=== PATIENT | female | born 1960 | race Caucasian/White ===

== ENCOUNTER 2018-01-02 09:11 | Emergency (ER) | payer OTHER ==
[~2018-01-02] VITALS: Ht 170.2 cm; Wt 65.8 kg
[~2018-01-02 09:11] MED LIST: "\\\"BLOOD PRESSURE MED\\\""; ACYC400 PO; ALBU90OI61 INH; AMIT10 PO; AMIT25 PO; AMLO5 PO; Allergy Relief10 M1 PO; Aspirin EC81 MG PO; BENZ100A PO; CARB100CH PO; CEPH500 PO; CITA20 PO; CLON.5 PO; CODACE30 PO; CYCL10 PO; Cyclobenzaprine5 MG PO; DIVA500EC PO; DIVA500ER PO; DOCU100 PO; FLUT.05NI; Golytely Packe1 EACH PO; HYDACE5 PO; HYDCHL25 PO; IBUP600; IBUP600 PO; LAMO100 PO; LAMO25 PO; LEVA.63IS IH; LEVE500 PO; LEVSOD50 PO; LISI20 PO; LORA10 PO; LOVA20 PO; MELO7.5 PO; METO25 PO; METO25ER PO; MONT10T PO; NAPR500 PO; Norco 5-325 Ta1 EACH PO; OLAN10 PO; OLAN5 PO; OXYC5; PHENY100ER PO; PROP10 PO; Percocet 5-3251 EACH PO; RANI150 PO; TRAM50; TRAZ50 PO; Valium5 MG PO; Vibramycin100 MG PO; Zyprexa10 MG PO
[2018-01-02] MEDS ORDERED: Tylenol325 MG PO (11:56)
== END 2018-01-02 12:10 | disposition home or self-care (01) ==
LOC: ER 09:11
DX: R51 Headache (principal); I10 Essential (primary) hypertension; F31.9 Bipolar disorder, unspecified; R56.9 Unspecified convulsions; Z88.5 Allergy status to narcotic agent; Z88.8 Allergy status to other drugs, medicaments and biological substances; Z79.82 Long term (current) use of aspirin; Z79.899 Other long term (current) drug therapy; Z87.891 Personal history of nicotine dependence; Z98.890 Other specified postprocedural states
CPT/HCPCS: 70450; 99284

== ENCOUNTER 2018-02-03 14:03 | Emergency (ER) | payer OTHER ==
[~2018-02-03] VITALS: Ht 170.2 cm; Wt 68.0 kg
[~2018-02-03 14:03] MED LIST changes: +Tylenol325 MG PO
[2018-02-03] MEDS ORDERED: Kristalose20 GM PO (17:40)
== END 2018-02-03 17:54 | disposition home or self-care (01) ==
LOC: ER 14:03
DX: K62.89 Other specified diseases of anus and rectum (principal); G89.29 Other chronic pain; I10 Essential (primary) hypertension; G40.909 Epilepsy, unspecified, not intractable, without status epilepticus; F31.9 Bipolar disorder, unspecified; Z88.5 Allergy status to narcotic agent; Z88.8 Allergy status to other drugs, medicaments and biological substances; Z79.899 Other long term (current) drug therapy; Z79.82 Long term (current) use of aspirin; Z87.891 Personal history of nicotine dependence
CPT/HCPCS: 99283

== ENCOUNTER 2018-03-16 17:05 | Emergency (ER) | payer OTHER ==
[~2018-03-16] VITALS: Ht 170.2 cm; Wt 68.0 kg
[~2018-03-16 17:05] MED LIST changes: +Aspirin EC81 MG; -Aspirin EC81 MG PO; +Kristalose20 GM PO
== END 2018-03-16 19:48 | disposition home or self-care (01) ==
LOC: ER 17:05
DX: M25.572 Pain in left ankle and joints of left foot (principal); G89.29 Other chronic pain; I10 Essential (primary) hypertension; F31.9 Bipolar disorder, unspecified; G40.909 Epilepsy, unspecified, not intractable, without status epilepticus; Z88.5 Allergy status to narcotic agent; Z88.8 Allergy status to other drugs, medicaments and biological substances; Z79.899 Other long term (current) drug therapy; Z79.82 Long term (current) use of aspirin; W01.0XXA Fall on same level from slipping, tripping and stumbling without subsequent striking against object, initial encounter
CPT/HCPCS: 73610; 73630; 99283

== ENCOUNTER 2018-03-25 17:12 | Emergency (ER) | payer OTHER ==
[~2018-03-25] VITALS: Ht 170.2 cm; Wt 68.0 kg
[2018-03-25] MEDS ORDERED: Roxicodone5 MG PO (19:01)
[2018-03-25] MEDS ORDERED: Cyclobenzaprine5 MG PO (19:01)
== END 2018-03-25 19:06 | disposition home or self-care (01) ==
LOC: ER 17:12
DX: M79.605 Pain in left leg (principal); G89.29 Other chronic pain; Z76.0 Encounter for issue of repeat prescription; Z88.5 Allergy status to narcotic agent; Z88.8 Allergy status to other drugs, medicaments and biological substances; Z79.899 Other long term (current) drug therapy; Z79.891 Long term (current) use of opiate analgesic; Z79.82 Long term (current) use of aspirin; I10 Essential (primary) hypertension; F31.9 Bipolar disorder, unspecified
CPT/HCPCS: 99283

== ENCOUNTER 2018-04-28 21:22 | Observation (INO) | payer OTHER ==
[~2018-04-28] VITALS: Ht 172.7 cm; Wt 81.7 kg
[~2018-04-28 21:22] MED LIST changes: +Roxicodone5 MG PO
[2018-04-28] MEDS ORDERED: IBUP800 PO (22:08)
[2018-04-28] MEDS ORDERED: ESCI20 PO (22:09)
[2018-04-28] MEDS ORDERED: AMIT25 PO (22:10)
[2018-04-28 22:14] LABS: BASOPHILS ABSOLUTE AUTO 0.04 K/mm3 (0.00-0.23); BASOPHILS PERCENT AUTO 1 % (0-2); EOSINOPHILS ABSOLUTE AUTO 0.37 K/mm3 (0.00-0.68); EOSINOPHILS PERCENT AUTO 5 % (0-6); Hematocrit 33.9 % (33.0-51.0); Hemoglobin 11.5 g/dL (11.5-16.0); IMMATURE GRAN ABSOLUTE AUTO 0.03 K/mm3 (0.00-0.10); IMMATURE GRAN PERCENT AUTO 0 % (0-1); LYMPHOCYTES ABSOLUTE AUTO 1.26 K/mm3 (0.84-5.20); LYMPHOCYTES PERCENT AUTO 16 % (21-46); MONOCYTES ABSOLUTE AUTO 0.65 K/mm3 (0.16-1.47); MONOCYTES PERCENT AUTO 8 % (4-13); Mean Corpuscular HGB 28.3 pg (26.0-34.0); Mean Corpuscular HGB Conc 33.9 g/dL (31.5-36.5); Mean Corpuscular Volume 84 fL (80-100); Mean Platelet Volume 8.8 fL (9.1-12.4); NEUTROPHILS ABSOLUTE AUTO 5.55 K/mm3 (1.96-9.15); NEUTROPHILS PERCENT AUTO 70 % (41-73); Platelet Count 311 K/mm3 (150-400); RDW Coefficient Variation 12.2 % (11.7-14.2); Red Blood Cell Count 4.06 M/mm3 (3.80-5.20)
[2018-04-28 22:38] LABS: Alanine Aminotransfer (ALT/SGP 25 U/L (12-78); Albumin, Blood 4.1 g/dL (3.4-5.0); Albumin/Globulin Ratio 1.1 (0.8-1.8); Alk Phos 106 U/L (50-136); Anion Gap 9 mmol/L (6-16); Aspartate Aminotrans (AST/SGOT 18 U/L (12-37); Bilirubin, Total 0.4 mg/dL (0.1-1.0); Blood Urea Nitrogen 11 mg/dL (8-24); Bun/Creatinine Ratio 16.6 (12.0-20.0); CO2, Blood 25 mmol/L (21-32); Calcium, Blood 8.9 mg/dL (8.5-10.1); Chloride, Blood 96 mmol/L (98-108); Creatinine, Blood 0.66 mg/dL (0.40-1.00); Ethanol (Alcohol), Blood, Med <3 mg/dL; Globulin, Blood 3.8 g/dL (2.2-4.0); Glomerular Filtration Rate >60 (60-); Glucose, Blood 100 mg/dL (70-99); Potassium, Blood 3.9 mmol/L (3.5-5.5); Salicylate <1.7 mg/dL (2.8-20.0); Sodium, Blood 130 mmol/L (136-145); Total Protein, Blood 7.9 g/dL (6.4-8.2)
[2018-04-28 22:46] LABS: Acetaminophen, Random <2.0 ug/mL (10.0-30.0)
[2018-04-28 23:37] LABS: Source, Urine Voided
[2018-04-28 23:45] LABS: Bilirubin, Urine Neg (Neg); Blood, Urine Neg (Neg); Glucose Qualitative, Urine Neg (Neg); Ketones, Urine Neg (Neg); Leukocyte Esterase, Urine Neg (Neg); Nitrite, Urine Neg (Neg); Protein, Urine Neg (Neg); Urobilinogen, Urine NORM (Normal)
[2018-04-28 23:51] LABS: Appearance, Urine Clear (Clear); Color, Urine Yellow (P-Yellow)
[2018-04-28 23:57] LABS: U Amphetamine Screen Not Detected; U Barbituate Screen Not Detected; U Benzodiazapine Screen Not Detected; U Buprenorphine Screen Not Detected; U Cannabinoids Screen Not Detected; U Cocaine Screen Not Detected; U Methadone Screen Not Detected; U Methamphetamine Screen Not Detected; U Opiates Screen Not Detected; U Oxycodone Screen Not Detected; U Phencyclidine Screen Not Detected; U Propoxyphene Screen Not Detected
== END 2018-04-29 17:54 | disposition home or self-care (01) ==
LOC: ER 21:22 → EOR 21:23
PROVIDERS: Emergency Medicine
DX: R45.851 Suicidal ideations (principal); F31.9 Bipolar disorder, unspecified; I10 Essential (primary) hypertension; Z88.5 Allergy status to narcotic agent; Z88.8 Allergy status to other drugs, medicaments and biological substances; Z79.899 Other long term (current) drug therapy; Z87.891 Personal history of nicotine dependence
CPT/HCPCS: 36415; 80053; 81003; 81025; 84443; 85025; 99285; G0378; G0480; Q3014

== ENCOUNTER 2018-05-04 21:31 | Observation (INO) | payer OTHER ==
[~2018-05-04] VITALS: Ht 172.7 cm; Wt 76.7 kg
[~2018-05-04 21:31] MED LIST changes: -Aspirin EC81 MG; +Aspirin EC81 MG PO; +ESCI20 PO; +IBUP800 PO
[2018-05-04 23:12] LABS: BASOPHILS ABSOLUTE AUTO 0.05 K/mm3 (0.00-0.23); BASOPHILS PERCENT AUTO 1 % (0-2); EOSINOPHILS ABSOLUTE AUTO 0.42 K/mm3 (0.00-0.68); EOSINOPHILS PERCENT AUTO 7 % (0-6); Hematocrit 31.9 % (33.0-51.0); Hemoglobin 10.9 g/dL (11.5-16.0); IMMATURE GRAN ABSOLUTE AUTO 0.01 K/mm3 (0.00-0.10); IMMATURE GRAN PERCENT AUTO 0 % (0-1); LYMPHOCYTES ABSOLUTE AUTO 1.24 K/mm3 (0.84-5.20); LYMPHOCYTES PERCENT AUTO 21 % (21-46); MONOCYTES PERCENT AUTO 10 % (4-13); Mean Corpuscular HGB 28.5 pg (26.0-34.0); Mean Corpuscular HGB Conc 34.2 g/dL (31.5-36.5); Mean Corpuscular Volume 84 fL (80-100); Mean Platelet Volume 8.7 fL (9.1-12.4); NEUTROPHILS ABSOLUTE AUTO 3.57 K/mm3 (1.96-9.15); NEUTROPHILS PERCENT AUTO 61 % (41-73); Platelet Count 309 K/mm3 (150-400); RDW Coefficient Variation 11.9 % (11.7-14.2); RDW Standard Deviation 35.8 fL (35.1-46.3); Red Blood Cell Count 3.82 M/mm3 (3.80-5.20); White Blood Cell Count 5.89 K/mm3 (4.00-11.30)
[2018-05-04 23:35] LABS: Alanine Aminotransfer (ALT/SGP 24 U/L (12-78); Albumin, Blood 3.8 g/dL (3.4-5.0); Alk Phos 100 U/L (50-136); Anion Gap 8 mmol/L (6-16); Aspartate Aminotrans (AST/SGOT 19 U/L (12-37); Bilirubin, Total 0.2 mg/dL (0.1-1.0); Blood Urea Nitrogen 6 mg/dL (8-24); Bun/Creatinine Ratio 9.3 (12.0-20.0); CO2, Blood 24 mmol/L (21-32); Calcium, Blood 8.4 mg/dL (8.5-10.1); Chloride, Blood 95 mmol/L (98-108); Creatinine, Blood 0.64 mg/dL (0.40-1.00); Ethanol (Alcohol), Blood, Med <3 mg/dL; Globulin, Blood 3.7 g/dL (2.2-4.0); Glomerular Filtration Rate >60 (60-); Glucose, Blood 80 mg/dL (70-99); Potassium, Blood 4.3 mmol/L (3.5-5.5); Salicylate <1.7 mg/dL (2.8-20.0); Sodium, Blood 127 mmol/L (136-145); Total Protein, Blood 7.5 g/dL (6.4-8.2)
[2018-05-04 23:41] LABS: Acetaminophen, Random <2.0 ug/mL (10.0-30.0)
[2018-05-05 00:51] LABS: Source, Urine Clean Catch
[2018-05-05 00:57] LABS: Bilirubin, Urine Neg (Neg); Blood, Urine Neg (Neg); Glucose Qualitative, Urine Neg (Neg); Ketones, Urine Neg (Neg); Leukocyte Esterase, Urine Neg (Neg); Nitrite, Urine Neg (Neg); Protein, Urine Neg (Neg); Urobilinogen, Urine NORM (Normal)
[2018-05-05 01:03] LABS: Appearance, Urine Clear (Clear); Color, Urine Yellow (P-Yellow)
[2018-05-05 01:08] LABS: U Amphetamine Screen Not Detected; U Barbituate Screen Not Detected; U Benzodiazapine Screen Not Detected; U Buprenorphine Screen Not Detected; U Cannabinoids Screen Not Detected; U Cocaine Screen Not Detected; U Methadone Screen Not Detected; U Methamphetamine Screen Not Detected; U Opiates Screen Not Detected; U Oxycodone Screen Not Detected; U Phencyclidine Screen Not Detected; U Propoxyphene Screen Not Detected
[2018-05-09] MEDS ORDERED: LEVSOD75 PO (13:48)
[2018-05-09] MEDS ORDERED: ALBU90OI INH (13:52)
[2018-05-11] MEDS ORDERED: QUET300 PO (12:38)
== END 2018-05-12 12:42 | disposition home or self-care (01) ==
LOC: ER 21:31 → EOR 21:32
PROVIDERS: Emergency Medicine
DX: R45.851 Suicidal ideations (principal); F23 Brief psychotic disorder; F31.9 Bipolar disorder, unspecified; I10 Essential (primary) hypertension; G40.909 Epilepsy, unspecified, not intractable, without status epilepticus; Z79.899 Other long term (current) drug therapy; Z88.5 Allergy status to narcotic agent; Z88.8 Allergy status to other drugs, medicaments and biological substances; Z87.891 Personal history of nicotine dependence
CPT/HCPCS: 80053; 80177; 81003; 81025; 84443; 85025; 93005; 93010; 99285; G0378; G0480; Q0163; Q0177

== ENCOUNTER 2019-01-29 20:10 | Emergency (ER) | payer OTHER ==
[~2019-01-29] VITALS: Ht 170.2 cm; Wt 71.2 kg
[~2019-01-29 20:10] MED LIST changes: +ALBU90OI INH; +LEVSOD75 PO; +QUET300 PO
[2019-01-29] MEDS ORDERED: Voltaren100 GM TOP (22:00)
== END 2019-01-29 22:06 | disposition home or self-care (01) ==
LOC: ER 20:10
DX: M25.562 Pain in left knee (principal); G89.29 Other chronic pain; Z88.5 Allergy status to narcotic agent; Z88.8 Allergy status to other drugs, medicaments and biological substances; Z79.899 Other long term (current) drug therapy; Z79.82 Long term (current) use of aspirin; I10 Essential (primary) hypertension; F31.9 Bipolar disorder, unspecified; Z87.891 Personal history of nicotine dependence
CPT/HCPCS: 73562-LT; 99283-25

== ENCOUNTER 2019-03-31 02:52 | Emergency (ER) | payer OTHER ==
[~2019-03-31] VITALS: Ht 170.2 cm; Wt 70.8 kg
[~2019-03-31 02:52] MED LIST changes: +Voltaren100 GM TOP
[2019-03-31] MEDS ORDERED: CITA20 PO (05:00)
[2019-03-31] MEDS ORDERED: TRAM50 PO (05:02)
== END 2019-03-31 05:03 | disposition home or self-care (01) ==
LOC: ER 02:52
DX: M19.072 Primary osteoarthritis, left ankle and foot (principal); Z88.5 Allergy status to narcotic agent; Z88.8 Allergy status to other drugs, medicaments and biological substances; Z79.899 Other long term (current) drug therapy; Z79.82 Long term (current) use of aspirin; F31.9 Bipolar disorder, unspecified; Z87.891 Personal history of nicotine dependence; I10 Essential (primary) hypertension; R53.1 Weakness
CPT/HCPCS: 99283

== ENCOUNTER 2019-04-04 10:44 | Emergency (ER) | payer OTHER ==
[~2019-04-04] VITALS: Ht 170.2 cm; Wt 69.8 kg
[~2019-04-04 10:44] MED LIST changes: +TRAM50 PO
== END 2019-04-04 13:29 | disposition home or self-care (01) ==
LOC: ER 10:44
DX: S90.32XA Contusion of left foot, initial encounter (principal); W22.8XXA Striking against or struck by other objects, initial encounter; Z88.5 Allergy status to narcotic agent; Z88.8 Allergy status to other drugs, medicaments and biological substances; Z79.899 Other long term (current) drug therapy; Z79.82 Long term (current) use of aspirin; F31.9 Bipolar disorder, unspecified; I10 Essential (primary) hypertension; Z87.891 Personal history of nicotine dependence
CPT/HCPCS: 73630; 99283-25

== ENCOUNTER 2019-05-27 22:37 | Emergency (ER) | payer OTHER ==
[~2019-05-27] VITALS: Ht 170.2 cm; Wt 70.3 kg
[2019-05-27 23:28] LABS: BASOPHILS ABSOLUTE AUTO 0.03 K/mm3 (0.00-0.23); BASOPHILS PERCENT AUTO 0 % (0-2); EOSINOPHILS ABSOLUTE AUTO 0.24 K/mm3 (0.00-0.68); EOSINOPHILS PERCENT AUTO 3 % (0-6); Hematocrit 32.7 % (33.0-51.0); Hemoglobin 10.4 g/dL (11.5-16.0); IMMATURE GRAN ABSOLUTE AUTO 0.03 K/mm3 (0.00-0.10); IMMATURE GRAN PERCENT AUTO 0 % (0-1); LYMPHOCYTES ABSOLUTE AUTO 1.89 K/mm3 (0.84-5.20); LYMPHOCYTES PERCENT AUTO 26 % (21-46); MONOCYTES ABSOLUTE AUTO 0.85 K/mm3 (0.16-1.47); MONOCYTES PERCENT AUTO 12 % (4-13); Mean Corpuscular HGB 25.9 pg (26.0-34.0); Mean Corpuscular HGB Conc 31.8 g/dL (31.5-36.5); Mean Corpuscular Volume 82 fL (80-100); NEUTROPHILS ABSOLUTE AUTO 4.14 K/mm3 (1.96-9.15); NEUTROPHILS PERCENT AUTO 58 % (41-73); Platelet Count 292 K/mm3 (150-400); RDW Coefficient Variation 13.1 % (11.7-14.2); RDW Standard Deviation 38.7 fL (35.1-46.3); Red Blood Cell Count 4.01 M/mm3 (3.80-5.20); White Blood Cell Count 7.18 K/mm3 (4.00-11.30)
[2019-05-27 23:47] LABS: Alanine Aminotransfer (ALT/SGP 27 U/L (12-78); Albumin, Blood 3.9 g/dL (3.4-5.0); Albumin/Globulin Ratio 1.1 (0.8-1.8); Alk Phos 90 U/L (50-136); Anion Gap 6 mmol/L (6-16); Aspartate Aminotrans (AST/SGOT 25 U/L (12-37); Bilirubin, Total 0.2 mg/dL (0.1-1.0); Blood Urea Nitrogen 18 mg/dL (8-24); Bun/Creatinine Ratio 32.4 (12.0-20.0); CO2, Blood 26 mmol/L (21-32); Calcium, Blood 8.4 mg/dL (8.5-10.1); Chloride, Blood 104 mmol/L (98-108); Creatinine, Blood 0.56 mg/dL (0.40-1.00); Globulin, Blood 3.5 g/dL (2.2-4.0); Glomerular Filtration Rate >60 (60-); Glucose, Blood 99 mg/dL (70-99); Potassium, Blood 4.3 mmol/L (3.5-5.5); Sodium, Blood 136 mmol/L (136-145); Total Protein, Blood 7.4 g/dL (6.4-8.2)
[2019-09-06] MEDS ORDERED: CYAN500 PO (08:42)
[2019-09-06] MEDS ORDERED: DOCU100 PO (08:43)
[2019-09-06] MEDS ORDERED: MELATONIN5 M1 PO (08:50)
[2019-09-06] MEDS ORDERED: MIRALAX17 GM PO (08:50)
== END 2019-05-28 01:10 | disposition home or self-care (01) ==
LOC: ER 22:37
PROVIDERS: Emergency Medicine
DX: K29.70 Gastritis, unspecified, without bleeding (principal); I10 Essential (primary) hypertension; F31.9 Bipolar disorder, unspecified; Z88.5 Allergy status to narcotic agent; Z88.8 Allergy status to other drugs, medicaments and biological substances; Z79.82 Long term (current) use of aspirin; Z79.899 Other long term (current) drug therapy; Z87.891 Personal history of nicotine dependence
CPT/HCPCS: 36415; 80053; 83690; 83735; 85025; 93005; 93010; 99284-25

== ENCOUNTER 2019-07-10 13:05 | Emergency (ER) | payer OTHER ==
[~2019-07-10] VITALS: Ht 170.2 cm; Wt 70.3 kg
[2019-07-10 14:16] LABS: BASOPHILS ABSOLUTE AUTO 0.05 K/mm3 (0.00-0.23); BASOPHILS PERCENT AUTO 1 % (0-2); EOSINOPHILS PERCENT AUTO 4 % (0-6); Hematocrit 34.4 % (33.0-51.0); Hemoglobin 10.9 g/dL (11.5-16.0); IMMATURE GRAN ABSOLUTE AUTO 0.01 K/mm3 (0.00-0.10); IMMATURE GRAN PERCENT AUTO 0 % (0-1); LYMPHOCYTES ABSOLUTE AUTO 1.54 K/mm3 (0.84-5.20); LYMPHOCYTES PERCENT AUTO 31 % (21-46); MONOCYTES ABSOLUTE AUTO 0.56 K/mm3 (0.16-1.47); MONOCYTES PERCENT AUTO 11 % (4-13); Mean Corpuscular HGB 24.7 pg (26.0-34.0); Mean Corpuscular HGB Conc 31.7 g/dL (31.5-36.5); Mean Corpuscular Volume 78 fL (80-100); Mean Platelet Volume 9.9 fL (9.1-12.4); NEUTROPHILS ABSOLUTE AUTO 2.62 K/mm3 (1.96-9.15); NEUTROPHILS PERCENT AUTO 53 % (41-73); Platelet Count 254 K/mm3 (150-400); RDW Coefficient Variation 14.8 % (11.7-14.2); RDW Standard Deviation 41.6 fL (35.1-46.3); Red Blood Cell Count 4.41 M/mm3 (3.80-5.20); White Blood Cell Count 4.98 K/mm3 (4.00-11.30)
[2019-07-10 14:37] LABS: Alanine Aminotransfer (ALT/SGP 19 U/L (12-78); Albumin, Blood 3.5 g/dL (3.4-5.0); Albumin/Globulin Ratio 0.8 (0.8-1.8); Alk Phos 86 U/L (50-136); Anion Gap 4 mmol/L (6-16); Aspartate Aminotrans (AST/SGOT 14 U/L (12-37); Bilirubin, Total 0.2 mg/dL (0.1-1.0); Blood Urea Nitrogen 17 mg/dL (8-24); Bun/Creatinine Ratio 27.3 (12.0-20.0); CO2, Blood 30 mmol/L (21-32); Calcium, Blood 9.7 mg/dL (8.5-10.1); Chloride, Blood 102 mmol/L (98-108); Creatinine, Blood 0.62 mg/dL (0.40-1.00); Globulin, Blood 4.2 g/dL (2.2-4.0); Glomerular Filtration Rate >60 (60-); Glucose, Blood 76 mg/dL (70-99); Potassium, Blood 3.8 mmol/L (3.5-5.5); Sodium, Blood 136 mmol/L (136-145); Total Protein, Blood 7.7 g/dL (6.4-8.2)
[2019-07-10] MEDS ORDERED: Pepcid40 MG PO (15:24)
[2019-09-06] MEDS ORDERED: CYAN500 PO (08:42)
[2019-09-06] MEDS ORDERED: DOCU100 PO (08:43)
[2019-09-06] MEDS ORDERED: MIRALAX17 GM PO (08:50)
[2019-09-06] MEDS ORDERED: MELATONIN5 M1 PO (08:50)
== END 2019-07-10 15:52 | disposition home or self-care (01) ==
LOC: ER 13:05
PROVIDERS: Emergency Medicine
DX: K27.9 Peptic ulcer, site unspecified, unspecified as acute or chronic, without hemorrhage or perforation (principal); M25.562 Pain in left knee; G89.29 Other chronic pain; I10 Essential (primary) hypertension; F31.9 Bipolar disorder, unspecified; Z86.73 Personal history of transient ischemic attack (TIA), and cerebral infarction without residual deficits; Z87.891 Personal history of nicotine dependence; Z88.5 Allergy status to narcotic agent; Z88.8 Allergy status to other drugs, medicaments and biological substances; Z79.899 Other long term (current) drug therapy; Z79.82 Long term (current) use of aspirin
CPT/HCPCS: 36415; 80053; 83690; 85025; 99284; J2405; J3010

== ENCOUNTER 2019-07-24 14:27 | Emergency (ER) | payer OTHER ==
[~2019-07-24] VITALS: Ht 170.2 cm; Wt 56.7 kg
[~2019-07-24 14:27] MED LIST changes: +Pepcid40 MG PO
[2019-09-06] MEDS ORDERED: CYAN500 PO (08:42)
[2019-09-06] MEDS ORDERED: DOCU100 PO (08:43)
[2019-09-06] MEDS ORDERED: MIRALAX17 GM PO (08:50)
[2019-09-06] MEDS ORDERED: MELATONIN5 M1 PO (08:50)
== END 2019-07-24 16:10 | disposition home or self-care (01) ==
LOC: ER 14:27
DX: M25.562 Pain in left knee (principal); I10 Essential (primary) hypertension; F31.9 Bipolar disorder, unspecified; Z88.5 Allergy status to narcotic agent; Z88.8 Allergy status to other drugs, medicaments and biological substances; Z79.82 Long term (current) use of aspirin; Z79.899 Other long term (current) drug therapy; E03.9 Hypothyroidism, unspecified; Z87.891 Personal history of nicotine dependence; Z96.652 Presence of left artificial knee joint
CPT/HCPCS: 73562-LT; 99283-25

== ENCOUNTER 2019-08-27 14:25 | Emergency (ER) | payer OTHER ==
[~2019-08-27] VITALS: Ht 170.2 cm; Wt 70.3 kg
[2019-08-27 15:27] LABS: BASOPHILS ABSOLUTE AUTO 0.03 K/mm3 (0.00-0.23); BASOPHILS PERCENT AUTO 1 % (0-2); EOSINOPHILS ABSOLUTE AUTO 0.22 K/mm3 (0.00-0.68); EOSINOPHILS PERCENT AUTO 4 % (0-6); Hematocrit 35.6 % (33.0-51.0); Hemoglobin 11.4 g/dL (11.5-16.0); IMMATURE GRAN ABSOLUTE AUTO 0.01 K/mm3 (0.00-0.10); IMMATURE GRAN PERCENT AUTO 0 % (0-1); LYMPHOCYTES ABSOLUTE AUTO 1.53 K/mm3 (0.84-5.20); LYMPHOCYTES PERCENT AUTO 27 % (21-46); MONOCYTES ABSOLUTE AUTO 0.61 K/mm3 (0.16-1.47); MONOCYTES PERCENT AUTO 11 % (4-13); Mean Corpuscular HGB 26.6 pg (26.0-34.0); Mean Corpuscular Volume 83 fL (80-100); Mean Platelet Volume 9.7 fL (9.1-12.4); NEUTROPHILS ABSOLUTE AUTO 3.29 K/mm3 (1.96-9.15); NEUTROPHILS PERCENT AUTO 58 % (41-73); Platelet Count 271 K/mm3 (150-400); RDW Coefficient Variation 15.3 % (11.7-14.2); RDW Standard Deviation 46.1 fL (35.1-46.3); Red Blood Cell Count 4.28 M/mm3 (3.80-5.20); White Blood Cell Count 5.69 K/mm3 (4.00-11.30)
[2019-08-27 15:40] LABS: International Normalized Ratio 0.92; Prothrombin Time Results 9.8 Sec (9.7-11.5)
[2019-08-27 15:46] LABS: Alanine Aminotransfer (ALT/SGP 24 U/L (12-78); Albumin, Blood 3.7 g/dL (3.4-5.0); Albumin/Globulin Ratio 0.8 (0.8-1.8); Alk Phos 78 U/L (50-136); Anion Gap 4 mmol/L (6-16); Aspartate Aminotrans (AST/SGOT 14 U/L (12-37); Bilirubin, Total 0.2 mg/dL (0.1-1.0); Blood Urea Nitrogen 24 mg/dL (8-24); Bun/Creatinine Ratio 37.9 (12.0-20.0); CO2, Blood 29 mmol/L (21-32); Calcium, Blood 9.9 mg/dL (8.5-10.1); Chloride, Blood 101 mmol/L (98-108); Creatinine, Blood 0.63 mg/dL (0.40-1.00); Globulin, Blood 4.4 g/dL (2.2-4.0); Glomerular Filtration Rate >60 (60-); Glucose, Blood 93 mg/dL (70-99); Sodium, Blood 134 mmol/L (136-145); Total Protein, Blood 8.1 g/dL (6.4-8.2)
[2019-09-06] MEDS ORDERED: CYAN500 PO (08:42)
[2019-09-06] MEDS ORDERED: DOCU100 PO (08:43)
[2019-09-06] MEDS ORDERED: MELATONIN5 M1 PO (08:50)
[2019-09-06] MEDS ORDERED: MIRALAX17 GM PO (08:50)
== END 2019-08-27 18:44 | disposition home or self-care (01) ==
LOC: ER 14:25
PROVIDERS: Physician Assistant
DX: R20.0 Anesthesia of skin (principal); G89.29 Other chronic pain; I10 Essential (primary) hypertension; F31.9 Bipolar disorder, unspecified; E03.9 Hypothyroidism, unspecified; Z88.5 Allergy status to narcotic agent; Z88.8 Allergy status to other drugs, medicaments and biological substances; Z79.899 Other long term (current) drug therapy; Z79.82 Long term (current) use of aspirin; Z87.891 Personal history of nicotine dependence
CPT/HCPCS: 36415; 70450; 80053; 85025; 85610; 93005; 93010; 99284-25

== ENCOUNTER 2019-09-07 07:24 | Day surgery (SDC) | payer OTHER ==
[~2019-09-07] VITALS: Ht 170.2 cm; Wt 75.9 kg
[~2019-09-07 07:24] MED LIST changes: +CYAN500 PO; +MELATONIN5 M1 PO; +MIRALAX17 GM PO
--- NOTE | 2019-09-07 08:10 | NUR ---
INTO SDS VIA WHEELCHAIR. HISTORY AND ALLERGIES REVIEWED. PT HAS HISTORY OF BRAIN ANEURYSM X 2-LEFT SIDED WEAKNESS. APPEARS A&OX3-DENIES PAIN AT THIS TIME.NPO STATUS CONFIRMED. PT TO TAKE TAXI HOME AFTER PROCEDURE.
--- NOTE | 2019-09-07 08:46 | NUR ---
09/07/19 0846 Jhoan Molina Bite Block PlacedPATIENT DETERMINED TO BE ASA APPROPRIATE FOR PROPOFOL SEDATION PRIOR TO START OF PROCEDURE BY .History, Chart, Medications and Allergies reviewed before start of procedure.MONITOR INTACT WITH CONTINUOUS PULSE OXIMETRY AND INTERMITTENT BP.O2 VIA N/C INTACT THROUGHOUT SEDATION/PROCEDURE.
--- NOTE | 2019-09-07 09:06 | NUR ---
PT AWAKE, CONVERSING WITH STAFF. NO C/O PAIN OR DISCOMFORT. MD TO BEDSIDE TO REVIEW FINDINGS OF CASE.
--- NOTE | 2019-09-07 09:12 | NUR ---
PT SIPPING ON PO FLUIDS AT THIS TIME.
--- NOTE | 2019-09-07 09:39 | NUR ---
PT HAD UNCOMPLICATED POST PROCEDURE COURSE. REVIEWED DISCHARGE INSTRUCTIONS WITH PATIENT WHO VERBALIZED UNDERSTANDING OF ALL. ASSISTED PATIENT IN DRESSING SELF. IV DC TIP INTACT. PT TRANSFERRED SELF TO OWN WHEELCHAIR WITH STAND PIVOT MANEUVER. PT DC HOME VIA MEDICAL TAXI PRE ARRANGED. AT HOME.
== END 2019-09-07 22:44 | disposition home or self-care (01) ==
LOC: ORSCMMR 07:24 → ORD 08:30 → ORSCMMR 22:44
PROVIDERS: Internal Medicine Gastroenterology
PROC: 0DB48ZX Excision of Esophagogastric Junction, Via Natural or Artificial Opening Endoscopic, Diagnostic (ICD-10-PCS; principal; 2019-09-07 08:30)
PROC: 0DB98ZX Excision of Duodenum, Via Natural or Artificial Opening Endoscopic, Diagnostic (ICD-10-PCS; principal; 2019-09-07 08:30)
PROC: 0DB68ZX Excision of Stomach, Via Natural or Artificial Opening Endoscopic, Diagnostic (ICD-10-PCS; principal; 2019-09-07 08:30)
DX: R10.13 Epigastric pain (principal); K44.9 Diaphragmatic hernia without obstruction or gangrene; D64.9 Anemia, unspecified; I10 Essential (primary) hypertension; F31.9 Bipolar disorder, unspecified; Z79.899 Other long term (current) drug therapy
CPT/HCPCS: 88305; 88342; J2704; J7120

== ENCOUNTER 2019-09-16 10:05 | Emergency (ER) | payer OTHER | END 2019-09-16 10:42 | disposition left against medical advice (07) | LOC: ER 10:05 | DX: Z53.21 Procedure and treatment not carried out due to patient leaving prior to being seen by health care provider (principal) ==

== ENCOUNTER 2019-10-21 10:05 | Day surgery (SDC) | payer OTHER ==
[~2019-10-21] VITALS: Wt 81.0 kg
[2019-10-21] MEDS ORDERED: FAMO20 PO (11:35)
[2019-10-21] MEDS ORDERED: OLAN5 PO (11:36)
[2019-10-21] MEDS ORDERED: LORA1 PO (11:36)
--- NOTE | 2019-10-21 12:01 | NUR ---
10/21/19 1201 NITIN ALLRED History, Chart, Medications and Allergies reviewed before start of procedure.3-LEAD EKG REVIEWED WITH PHYSICIAN PRIOR TO START OF PROCEDURE.O2 VIA N/C INTACT THROUGHOUT SEDATION/PROCEDURE. PATIENT DETERMINED TO BE ASA APPROPRIATE FOR PROPOFOL SEDATION PRIOR TO START OF PROCEDURE BY
--- NOTE | 2019-10-21 12:13 | NUR ---
PT INTO SDS VIA W/C. RANDOME SP[ORATICM SPEACH WITH INTERMITTENT ANXIETY AND TEARFUL.Patient confirms NPO status and agrees with scheduled surgery. Patient states colon prep results clear.
--- NOTE | 2019-10-21 13:41 | NUR ---
Discharge instructions reviewed with patient. Patient verbalizes understanding. Copy given to patient to take home. Discharged via wheelchair to private car for ride home.
--- NOTE | 2019-10-21 13:44 | NUR ---
PT DISCHARGED VIA TO WAIT FOR [facility] FOR RIDE HOME.
== END 2019-10-21 23:05 | disposition home or self-care (01) ==
LOC: ORSCMMR 10:05 → ORD 11:00 → ORSCMMR 11:00
PROVIDERS: Internal Medicine Gastroenterology
PROC: 0DBH8ZX Excision of Cecum, Via Natural or Artificial Opening Endoscopic, Diagnostic (ICD-10-PCS; principal; 2019-10-21 11:00)
DX: D50.0 Iron deficiency anemia secondary to blood loss (chronic) (principal); D12.0 Benign neoplasm of cecum; I10 Essential (primary) hypertension; M81.0 Age-related osteoporosis without current pathological fracture; F31.9 Bipolar disorder, unspecified; G40.909 Epilepsy, unspecified, not intractable, without status epilepticus; R10.13 Epigastric pain; Z79.899 Other long term (current) drug therapy
CPT/HCPCS: 88305; J2704; J7120

== ENCOUNTER 2019-11-27 06:30 | Emergency (ER) | payer OTHER ==
[~2019-11-27] VITALS: Ht 170.2 cm; Wt 81.2 kg
[~2019-11-27 06:30] MED LIST changes: +FAMO20 PO; +LORA1 PO
== END 2019-11-27 08:57 | disposition home or self-care (01) ==
LOC: ER 06:30
DX: M79.605 Pain in left leg (principal); G89.29 Other chronic pain; Z88.8 Allergy status to other drugs, medicaments and biological substances; Z88.5 Allergy status to narcotic agent; Z79.899 Other long term (current) drug therapy; F31.9 Bipolar disorder, unspecified; I10 Essential (primary) hypertension; E03.9 Hypothyroidism, unspecified
CPT/HCPCS: 73560-LT; 73590; 99283-25

== ENCOUNTER 2020-06-28 19:00 | Emergency (ER) | payer OTHER ==
[~2020-06-28] VITALS: Ht 170.2 cm; Wt 95.2 kg
[2020-06-28 19:36] LABS: BASOPHILS ABSOLUTE AUTO 0.04 K/mm3 (0.00-0.23); BASOPHILS PERCENT AUTO 1 % (0-2); EOSINOPHILS ABSOLUTE AUTO 0.28 K/mm3 (0.00-0.68); EOSINOPHILS PERCENT AUTO 4 % (0-6); Hematocrit 41.3 % (33.0-51.0); Hemoglobin 13.6 g/dL (11.5-16.0); IMMATURE GRAN ABSOLUTE AUTO 0.02 K/mm3 (0.00-0.10); IMMATURE GRAN PERCENT AUTO 0 % (0-1); LYMPHOCYTES ABSOLUTE AUTO 1.71 K/mm3 (0.84-5.20); LYMPHOCYTES PERCENT AUTO 24 % (21-46); MONOCYTES ABSOLUTE AUTO 0.73 K/mm3 (0.16-1.47); MONOCYTES PERCENT AUTO 10 % (4-13); Mean Corpuscular HGB 29.1 pg (26.0-34.0); Mean Corpuscular HGB Conc 32.9 g/dL (31.5-36.5); Mean Corpuscular Volume 88 fL (80-100); NEUTROPHILS ABSOLUTE AUTO 4.32 K/mm3 (1.96-9.15); NEUTROPHILS PERCENT AUTO 61 % (41-73); Platelet Count 207 K/mm3 (150-400); RDW Coefficient Variation 12.7 % (11.7-14.2); RDW Standard Deviation 41.3 fL (35.1-46.3); Red Blood Cell Count 4.68 M/mm3 (3.80-5.20)
[2020-06-28 20:03] LABS: Alanine Aminotransfer (ALT/SGP 27 U/L (12-78); Albumin, Blood 3.7 g/dL (3.4-5.0); Albumin/Globulin Ratio 0.9 (0.8-1.8); Alk Phos 86 U/L (50-136); Anion Gap 4 mmol/L (6-16); Aspartate Aminotrans (AST/SGOT 18 U/L (12-37); Bilirubin, Total 0.3 mg/dL (0.1-1.0); Blood Urea Nitrogen 15 mg/dL (8-24); Bun/Creatinine Ratio 24.5 (12.0-20.0); CO2, Blood 26 mmol/L (21-32); Calcium, Blood 9.3 mg/dL (8.5-10.1); Chloride, Blood 109 mmol/L (98-108); Creatinine, Blood 0.61 mg/dL (0.40-1.00); Globulin, Blood 4.3 g/dL (2.2-4.0); Glomerular Filtration Rate >60 (60-); Glucose, Blood 99 mg/dL (70-99); Potassium, Blood 3.7 mmol/L (3.5-5.5); Sodium, Blood 139 mmol/L (136-145)
[2020-06-28 22:01] LABS: Source, Urine Clean Catch
[2020-06-28 22:07] LABS: Bilirubin, Urine Neg (Neg); Blood, Urine Neg (Neg); Glucose Qualitative, Urine Neg (Neg); Ketones, Urine Neg (Neg); Leukocyte Esterase, Urine 3+ (Neg); Nitrite, Urine Neg (Neg); Protein, Urine Neg (Neg); Urobilinogen, Urine NORM (Normal)
[2020-06-28 22:09] LABS: Appearance, Urine Hazy (Clear); Color, Urine Yellow (P-Yellow)
[2020-06-28 22:15] LABS: Amorphous Mod (0-Heavy); Bacteria Mod /hpf; Hyaline Casts 0-2 /lpf (0-2); Red Blood Cells, Urine 0-2 /hpf (0-2); Squamous Epithelial Cells Rare /hpf (Few)
== END 2020-06-28 23:45 | disposition home or self-care (01) ==
LOC: ER 19:00
PROVIDERS: Emergency Medicine
DX: K62.5 Hemorrhage of anus and rectum (principal); R10.9 Unspecified abdominal pain; Z88.5 Allergy status to narcotic agent; Z88.8 Allergy status to other drugs, medicaments and biological substances; Z79.899 Other long term (current) drug therapy; F31.9 Bipolar disorder, unspecified; I10 Essential (primary) hypertension; Z87.891 Personal history of nicotine dependence
CPT/HCPCS: 36415; 74177; 80053; 81001; 85025; 86850; 86900; 86901; 87086; 93005; 93010; 99285-25; Q9967

== ENCOUNTER 2020-07-17 21:24 | Emergency (ER) | payer OTHER ==
[~2020-07-17] VITALS: Ht 162.6 cm; Wt 85.7 kg
== END 2020-07-18 00:32 | disposition home or self-care (01) ==
LOC: ER 21:24
DX: M79.672 Pain in left foot (principal); G89.29 Other chronic pain; Z88.5 Allergy status to narcotic agent; Z88.8 Allergy status to other drugs, medicaments and biological substances; Z79.899 Other long term (current) drug therapy; F31.9 Bipolar disorder, unspecified; I10 Essential (primary) hypertension; E03.9 Hypothyroidism, unspecified; Z87.891 Personal history of nicotine dependence
CPT/HCPCS: 73630; 99283-25

== ENCOUNTER 2020-07-19 18:13 | Emergency (ER) | payer OTHER ==
[~2020-07-19] VITALS: Ht 170.2 cm; Wt 81.7 kg
== END 2020-07-19 19:00 | disposition left against medical advice (07) ==
LOC: ER 18:13
DX: Z53.21 Procedure and treatment not carried out due to patient leaving prior to being seen by health care provider (principal)

== ENCOUNTER 2020-07-19 19:23 | Emergency (ER) | payer OTHER ==
[~2020-07-19] VITALS: Ht 170.2 cm; Wt 81.7 kg
== END 2020-07-19 23:18 | disposition home or self-care (01) ==
LOC: ER 19:23
DX: M84.375A Stress fracture, left foot, initial encounter for fracture (principal); F31.9 Bipolar disorder, unspecified; I10 Essential (primary) hypertension; E03.9 Hypothyroidism, unspecified; I69.354 Hemiplegia and hemiparesis following cerebral infarction affecting left non-dominant side; Z88.5 Allergy status to narcotic agent; Z88.8 Allergy status to other drugs, medicaments and biological substances; Z79.899 Other long term (current) drug therapy; X58.XXXA Exposure to other specified factors, initial encounter
CPT/HCPCS: 99283

== ENCOUNTER 2020-07-26 13:27 | Observation (INO) | payer OTHER ==
[~2020-07-26] VITALS: Ht 152.4 cm; Wt 61.2 kg
[~2020-07-26 13:27] MED LIST changes: -AMLO5 PO; -FAMO20 PO; +FAMO40 PO; +NORVASC10 MG PO; +ZESTRIL40 M2 PO
[2020-07-26 14:14] LABS: BASOPHILS ABSOLUTE AUTO 0.04 K/mm3 (0.00-0.23); BASOPHILS PERCENT AUTO 0 % (0-2); EOSINOPHILS ABSOLUTE AUTO 0.17 K/mm3 (0.00-0.68); EOSINOPHILS PERCENT AUTO 2 % (0-6); Hematocrit 42.9 % (33.0-51.0); Hemoglobin 14.3 g/dL (11.5-16.0); IMMATURE GRAN ABSOLUTE AUTO 0.03 K/mm3 (0.00-0.10); IMMATURE GRAN PERCENT AUTO 0 % (0-1); LYMPHOCYTES ABSOLUTE AUTO 1.45 K/mm3 (0.84-5.20); LYMPHOCYTES PERCENT AUTO 16 % (21-46); MONOCYTES ABSOLUTE AUTO 0.61 K/mm3 (0.16-1.47); MONOCYTES PERCENT AUTO 7 % (4-13); Mean Corpuscular HGB 28.6 pg (26.0-34.0); Mean Corpuscular HGB Conc 33.3 g/dL (31.5-36.5); Mean Corpuscular Volume 86 fL (80-100); Mean Platelet Volume 9.5 fL (9.1-12.4); NEUTROPHILS ABSOLUTE AUTO 6.69 K/mm3 (1.96-9.15); NEUTROPHILS PERCENT AUTO 75 % (41-73); Platelet Count 270 K/mm3 (150-400); RDW Coefficient Variation 12.7 % (11.7-14.2); RDW Standard Deviation 39.6 fL (35.1-46.3); White Blood Cell Count 8.99 K/mm3 (4.00-11.30)
[2020-07-26 14:35] LABS: Alanine Aminotransfer (ALT/SGP 36 U/L (12-78); Albumin/Globulin Ratio 0.8 (0.8-1.8); Alk Phos 124 U/L (50-136); Anion Gap 8 mmol/L (6-16); Aspartate Aminotrans (AST/SGOT 23 U/L (12-37); Bilirubin, Total 0.5 mg/dL (0.1-1.0); Blood Urea Nitrogen 17 mg/dL (8-24); CO2, Blood 23 mmol/L (21-32); Calcium, Blood 9.9 mg/dL (8.5-10.1); Chloride, Blood 108 mmol/L (98-108); Creatinine, Blood 0.65 mg/dL (0.40-1.00); Ethanol (Alcohol), Blood, Med <3 mg/dL; Glomerular Filtration Rate >60 (60-); Glucose, Blood 100 mg/dL (70-99); Potassium, Blood 3.6 mmol/L (3.5-5.5); Salicylate <1.7 mg/dL (2.8-20.0); Sodium, Blood 139 mmol/L (136-145)
[2020-07-26 14:38] LABS: Acetaminophen, Random <2.0 ug/mL (10.0-30.0)
[2020-07-26] MEDS ORDERED: NYSTATIN15 GM TOP (15:28)
[2020-07-26] MEDS ORDERED: TOPI25 PO (15:29)
[2020-07-26 15:31] LABS: Source, Urine Clean Catch
[2020-07-26 15:50] LABS: Appearance, Urine Clear (Clear); Bilirubin, Urine Neg (Neg); Blood, Urine Neg (Neg); Color, Urine Yellow (P-Yellow); Glucose Qualitative, Urine Neg (Neg); Ketones, Urine Neg (Neg); Leukocyte Esterase, Urine 1+ (Neg); Nitrite, Urine Neg (Neg); Protein, Urine Neg (Neg); Specific Gravity, Urine 1.015 (1.003-1.022); Urobilinogen, Urine NORM (Normal); pH, Urine 6.5 (5.0-8.0)
[2020-07-26 16:05] LABS: Bacteria Few /hpf; Squamous Epithelial Cells Few /hpf (Few)
[2020-07-26 16:20] LABS: U Amphetamine Screen Not Detected; U Barbituate Screen Not Detected; U Benzodiazapine Screen Not Detected; U Buprenorphine Screen Not Detected; U Cannabinoids Screen Not Detected; U Cocaine Screen Not Detected; U Methadone Screen Not Detected; U Methamphetamine Screen Not Detected; U Opiates Screen Not Detected; U Oxycodone Screen Not Detected; U Phencyclidine Screen Not Detected; U Propoxyphene Screen Not Detected
== END 2020-07-26 20:36 | disposition home or self-care (01) ==
LOC: ER 13:27 → EOR 13:28
PROVIDERS: Physician Assistant; ADMIT Emergency Medicine
DX: F31.9 Bipolar disorder, unspecified (principal); I10 Essential (primary) hypertension; G40.909 Epilepsy, unspecified, not intractable, without status epilepticus; Z79.899 Other long term (current) drug therapy
CPT/HCPCS: 36415; 73630; 80053; 81001; 81025; 85025; 87086; G0480

== ENCOUNTER 2020-07-27 09:04 | Observation (INO) | payer OTHER ==
[~2020-07-27] VITALS: Ht 152.4 cm; Wt 68.0 kg
[~2020-07-27 09:04] MED LIST changes: +NYSTATIN15 GM TOP; +TOPI25 PO
[2020-07-27 09:31] LABS: BASOPHILS ABSOLUTE AUTO 0.03 K/mm3 (0.00-0.23); BASOPHILS PERCENT AUTO 0 % (0-2); EOSINOPHILS ABSOLUTE AUTO 0.08 K/mm3 (0.00-0.68); EOSINOPHILS PERCENT AUTO 1 % (0-6); Hematocrit 40.9 % (33.0-51.0); Hemoglobin 13.9 g/dL (11.5-16.0); IMMATURE GRAN ABSOLUTE AUTO 0.02 K/mm3 (0.00-0.10); IMMATURE GRAN PERCENT AUTO 0 % (0-1); LYMPHOCYTES ABSOLUTE AUTO 1.34 K/mm3 (0.84-5.20); LYMPHOCYTES PERCENT AUTO 16 % (21-46); MONOCYTES ABSOLUTE AUTO 0.67 K/mm3 (0.16-1.47); MONOCYTES PERCENT AUTO 8 % (4-13); Mean Corpuscular HGB 29.1 pg (26.0-34.0); Mean Corpuscular Volume 86 fL (80-100); Mean Platelet Volume 9.5 fL (9.1-12.4); NEUTROPHILS PERCENT AUTO 75 % (41-73); Platelet Count 254 K/mm3 (150-400); RDW Coefficient Variation 12.6 % (11.7-14.2); RDW Standard Deviation 39.2 fL (35.1-46.3); Red Blood Cell Count 4.77 M/mm3 (3.80-5.20); White Blood Cell Count 8.64 K/mm3 (4.00-11.30)
[2020-07-27 09:50] LABS: Salicylate <1.7 mg/dL (2.8-20.0)
[2020-07-27 09:51] LABS: Alanine Aminotransfer (ALT/SGP 32 U/L (12-78); Albumin, Blood 4.2 g/dL (3.4-5.0); Albumin/Globulin Ratio 0.9 (0.8-1.8); Alk Phos 115 U/L (50-136); Anion Gap 6 mmol/L (6-16); Aspartate Aminotrans (AST/SGOT 29 U/L (12-37); Bilirubin, Total 0.6 mg/dL (0.1-1.0); Blood Urea Nitrogen 22 mg/dL (8-24); Bun/Creatinine Ratio 25.9 (12.0-20.0); CO2, Blood 26 mmol/L (21-32); Calcium, Blood 9.6 mg/dL (8.5-10.1); Chloride, Blood 109 mmol/L (98-108); Creatinine, Blood 0.85 mg/dL (0.40-1.00); Globulin, Blood 4.6 g/dL (2.2-4.0); Glomerular Filtration Rate >60 (60-); Glucose, Blood 113 mg/dL (70-99); Potassium, Blood 3.6 mmol/L (3.5-5.5); Sodium, Blood 141 mmol/L (136-145); Total Protein, Blood 8.8 g/dL (6.4-8.2)
[2020-07-27 09:53] LABS: Source, Urine Clean Catch
[2020-07-27 09:55] LABS: Acetaminophen, Random <2.0 ug/mL (10.0-30.0); Ethanol (Alcohol), Blood, Med <3 mg/dL
[2020-07-27 10:09] LABS: Bilirubin, Urine Neg (Neg); Blood, Urine Neg (Neg); Glucose Qualitative, Urine Neg (Neg); Ketones, Urine 1+ (Neg); Leukocyte Esterase, Urine 2+ (Neg); Nitrite, Urine Neg (Neg); Protein, Urine 3+ (Neg); Urobilinogen, Urine NORM (Normal)
[2020-07-27 10:18] LABS: Appearance, Urine Clear (Clear); Color, Urine Yellow (P-Yellow)
[2020-07-27 10:19] LABS: Bacteria Mod /hpf; Mucus Light (0-Heavy); Red Blood Cells, Urine 0-2 /hpf (0-2); Squamous Epithelial Cells Few /hpf (Few)
[2020-07-27 10:20] LABS: U Amphetamine Screen Not Detected; U Barbituate Screen Not Detected; U Benzodiazapine Screen Not Detected; U Buprenorphine Screen Not Detected; U Cannabinoids Screen Not Detected; U Cocaine Screen Not Detected; U Methadone Screen Not Detected; U Methamphetamine Screen Not Detected; U Opiates Screen Not Detected; U Oxycodone Screen Not Detected; U Phencyclidine Screen Not Detected; U Propoxyphene Screen Not Detected
[2020-07-27 10:53] LABS: Thyroxine (T4) 11.8 ug/dL (4.8-13.9)
[2020-07-27 10:56] LABS: Thyroid Stimulating Hormone 9.35 uIU/mL (0.360-4.800)
== END 2020-07-29 20:18 ==
LOC: ER 09:04 → EOR 09:05 → UNDODEPER 07-29 20:18
PROVIDERS: ADMIT Emergency Medicine
DX: F31.9 Bipolar disorder, unspecified (principal); N39.0 Urinary tract infection, site not specified; E87.1 Hypo-osmolality and hyponatremia; Z20.828 Contact with and (suspected) exposure to other viral communicable diseases; I10 Essential (primary) hypertension; Z88.8 Allergy status to other drugs, medicaments and biological substances; Z88.5 Allergy status to narcotic agent; Z79.899 Other long term (current) drug therapy; F19.10 Other psychoactive substance abuse, uncomplicated
CPT/HCPCS: 36415; 80053; 81001; 84436; 84443; 84481; 85025; 87086; 96372; 99285; A9270-GY; G0378; G0480; U0002

== ENCOUNTER 2023-03-09 08:53 | Emergency (ER) | payer OTHER ==
[~2023-03-09] VITALS: Ht 167.6 cm; Wt 68.0 kg
[2023-03-09 09:37] VITALS: BP 181/97
== END 2023-03-09 09:45 | disposition home or self-care (01) ==
LOC: ER 08:53
DX: M79.605 Pain in left leg (principal); M81.0 Age-related osteoporosis without current pathological fracture; M19.90 Unspecified osteoarthritis, unspecified site; Z88.5 Allergy status to narcotic agent; Z88.8 Allergy status to other drugs, medicaments and biological substances; Z79.899 Other long term (current) drug therapy
CPT/HCPCS: 99283

== ENCOUNTER 2024-01-11 13:25 | Emergency (ER) | payer OTHER ==
[~2024-01-11] VITALS: Ht 162.6 cm; Wt 54.4 kg
[2024-01-11 13:33] VITALS: BP 180/95
== END 2024-01-11 15:00 | disposition home or self-care (01) ==
LOC: ER 13:25
DX: R51.9 Headache, unspecified (principal); S92.902D Unspecified fracture of left foot, subsequent encounter for fracture with routine healing; S92.901D Unspecified fracture of right foot, subsequent encounter for fracture with routine healing; F31.9 Bipolar disorder, unspecified; X58.XXXD Exposure to other specified factors, subsequent encounter; Z88.5 Allergy status to narcotic agent; Z88.8 Allergy status to other drugs, medicaments and biological substances; Z79.890 Hormone replacement therapy; Z79.899 Other long term (current) drug therapy; Z87.891 Personal history of nicotine dependence; Z86.79 Personal history of other diseases of the circulatory system
CPT/HCPCS: 70450; 99284-25

== ENCOUNTER 2025-01-31 08:27 | Emergency (ER) | payer OTHER ==
[~2025-01-31] VITALS: Ht 170.2 cm; Wt 58.1 kg
[2025-01-31 09:33] VITALS: BP 215/83
== END 2025-01-31 09:41 | disposition home or self-care (01) ==
LOC: ER 08:27
DX: Z00.8 Encounter for other general examination (principal); I10 Essential (primary) hypertension; Z87.891 Personal history of nicotine dependence
CPT/HCPCS: 99281

== ENCOUNTER 2025-09-17 13:31 | Emergency (ER) | payer OTHER ==
[~2025-09-17] VITALS: Ht 170.2 cm; Wt 57.1 kg
[~2025-09-17 13:31] MED LIST changes: +AMLO5 PO
[2025-09-17] MEDS ORDERED: EUTHYROX88 MCG PO (13:51)
[2025-09-17] MEDS ORDERED: AMLO10 PO (13:51)
[2025-09-17 16:39] VITALS: BP 189/90
== END 2025-09-17 16:41 | disposition home or self-care (01) ==
LOC: ER 13:31
DX: S93.402A Sprain of unspecified ligament of left ankle, initial encounter (principal); R51.9 Headache, unspecified; X50.1XXA Overexertion from prolonged static or awkward postures, initial encounter; Z87.891 Personal history of nicotine dependence; Z79.899 Other long term (current) drug therapy; Z88.5 Allergy status to narcotic agent; Z88.8 Allergy status to other drugs, medicaments and biological substances
CPT/HCPCS: 70450; 73610; 73630; 99284-25